=== PATIENT | male | born 1930 | race Caucasian/White ===

== ENCOUNTER 2018-04-08 13:04 | Day surgery (SDC) | payer MEDICARE, BC ==
[~2018-04-08] VITALS: Ht 188 cm; Wt 80.5 kg
[~2018-04-08 13:04] MED LIST: ALMACONE 360 M360 ML PO; ANTI-GAS 8080 MG PO; ANTI-GAS80 MG PO; ASPIRIN 81M81 MG/TA2 PO; ASPIRIN E.C. 8181 MG PO; CELEXA 20MG20 MG/TAB PO; CELEXA10 MG PO; CEPHALEXIN500 M1 PO; CORDARONE200 MG/TAB PO; DESYREL 50MG50 MG PO; DULCOLAX S10 MG/SUPP RC; DULCOLAX STOOL100 MG PO; ELITE MAGNESIUM1 TAB PO; EPA FISH OIL1000 MG PO; FEOSOL45 MG; GLUCOPHAGE XR500 M1 PO; GLUCOPHAGE500 MG/TAB PO; HYDROCORTISO28.35 G1 TP; IMODIUM 2MG CAPS2 MG PO; K-DUR 10 MEQ T10 MEQ PO; LASIX 20MG TABL20 MG PO; LASIX 40MG TABL40 MG PO; LASIX40 MG PO; LAXATIVE MAXIMU25 MG PO; LEVAQUIN 750MG750 M1 PO; LOPRESSOR 225 MG/TAB PO; LORTAB 5/500 501 TAB PO; MAG-OX 400400 MG/TAB PO; METFORMIN500 MG PO; MICRO-K 10 EXT10 MEQ PO; MICRO-K 1010 MEQ PO; MILK OF MA400 MG/52; MINOCYCLIN100 MG/CAP PO; MONOPRIL40 MG PO; MULTIPLE VITAMI1 CAP PO; MYLICON 8080 MG/TAB. PO; NEURONTIN300 MG/CAP PO; NEURONTIN600 MG/TAB PO; NIZORAL SHAMPO120 M1 TOP; NORCO 325 MG-51 TAB PO; NORVASC2.5 MG PO; OCUVITE1 TA1 PO; PACERONE100 MG PO; PAMELOR 10MG10 MG PO; PEPCID AC20 MG PO; PERCOCET 325 MG1 TA2 PO; PLAVIX 75MG TAB75 MG PO; PROAIR HFA0.09 MG/AC IH; PROVENTIL0.09 MG/A1 IH; RESTORIL30 MG PO; STOOL SOFTENER100 M2 PO; TEMAZEPAM30 MG PO; VENTOLIN0.09 MG IH; ZESTRIL 20MG TA20 MG PO; ZOCOR 20MG20 MG PO; ZOCOR20 MG PO; ZOMETA INJ4 MG/VIAL IV; [UNRECOGNIZED DRUG - OTHER] PO
[2018-04-08] MEDS ORDERED: TYLENOL SU650 MG/SUP RC (13:29)
[2018-04-08 13:40] VITALS: BP 109/62; PULSE 79; TEMP 97.9
[2018-04-08] MEDS ORDERED: ALMACONE 360 M360 ML PO (13:44)
[2018-04-08] MEDS ORDERED: PRIL40 PO (13:45)
[2018-04-08] MEDS ORDERED: MIRALAX PA17 GM/Dose PO (13:46)
[2018-04-08] MEDS ORDERED: FLOMAX 0.40.4 MG/CAP PO (13:47)
[2018-04-08] MEDS ORDERED: TYLENOL 325MG325 MG PO (13:48)
== END 2018-04-08 14:43 | disposition home or self-care (01) ==
LOC: SDCO 13:04
DX: R33.9 Retention of urine, unspecified (principal); I10 Essential (primary) hypertension; Z88.0 Allergy status to penicillin; Z88.1 Allergy status to other antibiotic agents; Z88.2 Allergy status to sulfonamides; Z87.891 Personal history of nicotine dependence; Z83.3 Family history of diabetes mellitus; Z82.49 Family history of ischemic heart disease and other diseases of the circulatory system